=== PATIENT | female | born 1960 | race Hispanic/Latino ===

== ENCOUNTER 2019-06-11 07:49 | Observation (INO) | payer OTHER ==
[2019-06-11] VITALS (19 sets, daily range): BP systolic 97–176; BP diastolic 64–91
[~2019-06-11] VITALS: Ht 154.9 cm; Wt 54.5 kg
[~2019-06-11 07:49] MED LIST: SODIUM CHLORIDE 0.9% 1000ML 1,000 ML IV ONE
[2019-06-11] MEDS ORDERED: PANT40TA25 PO (10:00)
[2019-06-11] MEDS ORDERED: GLYCOPYRROLATE 0.2 MG/ML 5 ML VIAL ONE (10:35)
[2019-06-11] MEDS ORDERED: ROCURONIUM 10MG/1ML SYR 10 MG/ML ML ONE (10:57)
[2019-06-11] MEDS ORDERED: FENTANYL CITRATE PF 50 MCG/1 ML 2ML VIAL ONE (11:00)
[2019-06-11] MEDS ORDERED: MIDAZOLAM HCL 1 MG/ML 2ML VIAL ONE (11:00)
[2019-06-11] MEDS: ZOSYN 3.375GM+NS 50ML 50 ML IV SCH ×2 (13:00→19:35)
--- NOTE | 2019-06-11 13:20 | NUR ---
PT TO PACU, SEDATED. PT HAS NGT TO RT VINICIO GAMBLE, BESSIE JACK. MICHI MEZA RUNNING AT THIS TIME. PT STABLE, AWAKE AND ALERT. Addendum: 06/11/19 at 1339 by CARLOS A LUO RN RN Amended: Links added.
[2019-06-11] MEDS ORDERED: ONDANSETRON HCL 4 MG/2 ML VIAL ONE (13:27)
[2019-06-11] MEDS ORDERED: DEXAMETHASONE SOD PHOSPHATE 4 MG/ML 5ML VIAL ONE (13:29)
--- NOTE | 2019-06-11 16:30 | NUR ---
CALLED TO DR LENA MD REGARDING CONFIRMATION ON ADMITTING , PER AWARE OF PATIENT AND WILL BE THE ADMITTING MD ,PER MD MOHR,KNOTTING MACHINE OPERATOR WILL SEE PATIENT . LET HIM KNOW WHEN PATIENT ARRIVED TO FLOOR HAD COMPLAINT OF SOME PAIN WITH URINATION ,AND NO CURRENT UA .. PER MD HAVE POST OP NOTES READY AND HOME MEDS LISTED FOR READY FOR REVIEW .
--- NOTE | 2019-06-11 16:30 | NUR ---
INFORMED DR CASTELAN REGARDING NGT OUTPUT AT 600C AND ONGOING IF CONT TO REMOVED TUBE PER POST PROCEDURE ORDER TO REMOVE IN 3 .5 HRS.. PER MD IF PATIENT AWAKE OK TO REMOVE NGT . NGT OUT ,PATIENT TOLERATED WELL
--- NOTE | 2019-06-11 17:22 | NUR ---
ON ARRIVAL TO FLOOR PATIENT HAD ZOSYN COMPLETED
[2019-06-11] MEDS ORDERED: ACETAMINOPHEN 120 MG SUPPOSITORY RC PRN (17:45)
[2019-06-11] MEDS ORDERED: HYDRALAZINE HCL 20 MG/ML VIAL IV PRN (17:45)
[2019-06-11] MEDS ORDERED: ACETAMINOPHEN 650 MG SUPPOSITORY RC PRN (18:30)
[2019-06-11 18:45] LABS: HEMATOCRIT 35.7 % (36-48); MEAN CORPUSCULAR HEMOGLOBIN 28.7 pg (27.0-33.0); MEAN CORPUSCULAR HGB CONC 32.2 g/dL (32.0-36.0); PLATELET COUNT (AUTO) 335 K/uL (130-400); RED BLOOD CELL COUNT(AUTO) 4.01 MIL/uL (4.00-5.50); RED CELL DISTRIBUTION WIDTH 14.7 % (11.0-15.5)
[2019-06-11 18:58] LABS: CREATININE 0.6 mg/dL (0.5-1.5); POTASSIUM 3.4 mmol/L (3.5-5.1)
[2019-06-11] MEDS: ACETAMINOPHEN 325 MG TAB PO PRN (19:36)
[2019-06-11] MEDS: SODIUM CHLORIDE 0.9% 1000ML 1,000 ML IV SCH (19:41)
[2019-06-11] MEDS ORDERED: POTASSIUM CHLORIDE 20MEQ/100ML 100 ML IV PRN (19:45)
[2019-06-11] MEDS ORDERED: LIDOCAINE HCL-MPF 1% 2ML VIAL IV PRN (19:45)
[2019-06-11] MEDS ORDERED: POTASSIUM CHLORIDE 20 MEQ ERTAB PO PRN (19:45)
[2019-06-11 19:48] LABS: APPEARANCE,URINE Clear (CLEAR); BILIRUBIN,URINE Negative (NEGATIVE); COLOR,URINE Yellow (YELLOW); GLUCOSE, URINE (UA) Negative (NEGATIVE); KETONES,URINE 40 mg/dL (NEGATIVE); LEUKOCYTE ESTERASE ,URINE Trace (NEGATIVE); NITRATE,URINE Negative (NEGATIVE); OCCULT BLOOD,URINE Negative (NEGATIVE); PH,URINE 7.5 (5.0-8.0); PROTEIN,URINE Negative (NEGATIVE); UROBILINOGEN,URINE 0.2 mg/dL (0.2-1.0)
[2019-06-11 20:07] LABS: BACTERIA,URINE Rare /HPF (None Seen); RBC,URINE None Seen /HPF (0-1); SQUAMOUS EPITHELIAL CELL,UR 0-2 /HPF (0-2); WBC,URINE 0-1 /HPF (0-1)
[2019-06-11] MEDS: ONDANSETRON HCL 4 MG/2 ML VIAL IVP PRN (23:53)
--- NOTE | 2019-06-11 23:55 | NUR ---
ROUNDS PATIENT AWAKE AND ALERT. NOTED WITH NAUSEA AND EMESIS NOTED TO EMESIS BAG. PATIENT MEDICATED PER MARS FOR NAUSEA AND ASSISTED TO SHOWER. VITALS STABLE. AFEBRILE. PATIENT TOLERATING SHOWER WELL. WILL CONTINUE TO BE OBSERVED. CALL LIGHT WITHIN REACH. Addendum: 06/12/19 at 0536 by MARIE DANIELS RN RN Amended: Links added.
[2019-06-12] MEDS: ACETAMINOPHEN 325 MG TAB PO PRN (02:36)
[2019-06-12] MEDS: SODIUM CHLORIDE 0.9% 1000ML 1,000 ML IV SCH ×4 (02:57→20:19)
[2019-06-12] MEDS: ZOSYN 3.375GM+NS 50ML 50 ML IV SCH ×3 (03:36→20:19)
[2019-06-12 04:00] VITALS: BP 152/58
[2019-06-12] MEDS ORDERED: KETOROLAC TROMETHAMINE 15MG/ML ONE (05:12)
[2019-06-12 05:20] LABS: BASOPHILS % (AUTO) 0.3 % (0.0-5.0); HEMATOCRIT 35.1 % (36-48); LYMPHOCYTES % (AUTO) 15.2 % (21.0-51.0); MEAN CORPUSCULAR HEMOGLOBIN 28.7 pg (27.0-33.0); MEAN CORPUSCULAR HGB CONC 32.5 g/dL (32.0-36.0); MEAN CORPUSCULAR VOLUME 88.4 fL (79-99); MONOCYTES % (AUTO) 4.6 % (3.0-13.0); NEUTROPHILS % (AUTO) 79.6 % (40.0-77.0); PLATELET COUNT (AUTO) 366 K/uL (130-400); RED BLOOD CELL COUNT(AUTO) 3.97 MIL/uL (4.00-5.50); RED CELL DISTRIBUTION WIDTH 14.6 % (11.0-15.5); WHITE BLOOD COUNT (AUTO) 12.4 K/uL (4.8-10.8)
[2019-06-12 05:34] LABS: ALBUMIN 2.4 g/dL (3.5-5.0); BILIRUBIN,TOTAL 0.5 mg/dL (0.2-1.0); CREATININE 0.7 mg/dL (0.5-1.5); POTASSIUM 3.3 mmol/L (3.5-5.1); TOTAL PROTEIN, SERUM 6.4 g/dL (6.0-8.3)
--- NOTE | 2019-06-12 07:31 | NUR ---
MD ROUNDS VISITED WITH PATIENT. POC DISCUSSED. PER MD IF PATIENT TOLERATES PO DIET WELL, PATIENT MAY BE DISCHARGED LATER THIS AFTERNOON. IF PATIENT DOES NOT TOLERATE DIET, PATIENT MAY STAY ONE MORE NIGHT. PATIENT AWARE OF PLAN. NO QUESTIONS AT THIS TIME. PATIENT AWAKE AND ALERT EATING BREAKFAST AT THIS TIME. HOB ELEVATED. CALL LIGHT WITHIN REACH. WILL CONTINUE TO BE OBSERVED. REPORT GIVEN TO MIRZA JOY. Addendum: 06/12/19 at 0737 by MARIE DANIELS RN RN Amended: Links added.
[2019-06-12 07:52] VITALS: BP 136/57
[2019-06-12] MEDS: PANTOPRAZOLE SODIUM 40 MG TABLET.DR PO SCH (08:09)
[2019-06-12 11:48] VITALS: BP 126/71
[2019-06-12] MEDS: KETOROLAC TROMETHAMINE 15MG/ML IV PRN ×2 (16:30→20:49)
[2019-06-12] MEDS: ONDANSETRON HCL 4 MG/2 ML VIAL IVP PRN (16:33)
[2019-06-12 16:46] VITALS: BP 126/75
[2019-06-12 20:00] VITALS: BP 126/64
[2019-06-12 23:39] VITALS: BP 133/62
[2019-06-13 03:56] VITALS: BP 135/72
[2019-06-13] MEDS: ZOSYN 3.375GM+NS 50ML 50 ML IV SCH (03:57)
[2019-06-13] MEDS: SODIUM CHLORIDE 0.9% 1000ML 1,000 ML IV SCH (03:58)
[2019-06-13] MEDS: KETOROLAC TROMETHAMINE 15MG/ML IV PRN (03:59)
[2019-06-13 05:01] LABS: BASOPHILS % (AUTO) 0.2 % (0.0-5.0); EOSINOPHILS % (AUTO) 0.9 % (0.0-8.0); HEMATOCRIT 31.6 % (36-48); LYMPHOCYTES % (AUTO) 11.9 % (21.0-51.0); MEAN CORPUSCULAR HEMOGLOBIN 28.9 pg (27.0-33.0); MEAN CORPUSCULAR HGB CONC 32.6 g/dL (32.0-36.0); MEAN CORPUSCULAR VOLUME 88.8 fL (79-99); MONOCYTES % (AUTO) 5.4 % (3.0-13.0); NEUTROPHILS % (AUTO) 81.2 % (40.0-77.0); PLATELET COUNT (AUTO) 286 K/uL (130-400); RED BLOOD CELL COUNT(AUTO) 3.56 MIL/uL (4.00-5.50); RED CELL DISTRIBUTION WIDTH 14.6 % (11.0-15.5); WHITE BLOOD COUNT (AUTO) 10.6 K/uL (4.8-10.8)
[2019-06-13 05:25] LABS: ALBUMIN 1.9 g/dL (3.5-5.0); ASPARTATE AMINOTRANSFERASE 17 U/L (10-37); BILIRUBIN,TOTAL 0.5 mg/dL (0.2-1.0); CARBON DIOXIDE 26 mmol/L (21-32); CHLORIDE 101 mmol/L (101-111); CREATININE 0.5 mg/dL (0.5-1.5); GLOMERULAR FILTR. RATE CALC 136 mL/min (>60); GLUCOSE,RANDOM 101 mg/dL (70-105); POTASSIUM 3.3 mmol/L (3.5-5.1); SODIUM SERUM 136 mmol/L (136-145); TOTAL PROTEIN, SERUM 5.7 g/dL (6.0-8.3); UREA NITROGEN, BLOOD 5 mg/dL (7-18)
[2019-06-13 05:31] LABS: ALANINE AMINOTRANSFERASE < 6 U/L (12-78)
[2019-06-13 07:30] VITALS: BP 138/67
[2019-06-13] MEDS: POTASSIUM CHLORIDE 10% ELIXIR 20 MEQ/15 ML UDCUP PO PRN ×2 (07:37→11:02)
[2019-06-13] MEDS: PANTOPRAZOLE SODIUM 40 MG TABLET.DR PO SCH (08:00)
[2019-06-13 11:00] VITALS: BP 124/66
[2019-06-13] MEDS: ACETAMINOPHEN 325 MG TAB PO PRN (11:03)
== END 2019-06-13 16:15 | disposition home or self-care (01) ==
LOC: ENDO 07:49 → DAH 07:49 → DAHIP 07:50 → ENDO 07:50 → 4CH 14:04
PROVIDERS: ADMIT Internal Medicine; ATTEND Internal Medicine
DX: K86.2 Cyst of pancreas (principal); K31.89 Other diseases of stomach and duodenum; R35.0 Frequency of micturition; K21.9 Gastro-esophageal reflux disease without esophagitis; R63.4 Abnormal weight loss; R07.0 Pain in throat; R11.2 Nausea with vomiting, unspecified; E87.6 Hypokalemia; Z90.49 Acquired absence of other specified parts of digestive tract; Z12.11 Encounter for screening for malignant neoplasm of colon
CPT/HCPCS: 36415 ×3; 43240; 71045; 80048; 80053 ×2; 81001; 82948; 85025 ×2; 85027; 87088; 96361; 96365; 96366 ×3; 96368; 96375 ×2; 96376 ×2; A4215; A4221; A4222; A4223; A4606; A4663; C1877; G0378 ×45; J1100; J1885 ×4; J2250; J2405 ×3; J2543 ×6; J3010; J3480; J3490 ×2; J7030 ×5; 99218; C9113

== ENCOUNTER 2019-08-27 04:55 | Day surgery (SDC) | payer OTHER ==
[~2019-08-27] VITALS: Ht 154.9 cm; Wt 58.1 kg
[~2019-08-27 04:55] MED LIST changes: +METO5TAB2 PO; +PANT40TA55 PO; -SODIUM CHLORIDE 0.9% 1000ML 1,000 ML IV ONE
[2019-08-27 10:03] VITALS: BP 109/66
[2019-08-27] MEDS ORDERED: SODIUM CHLORIDE 0.9% 1000ML 1,000 ML IV ONE (10:24)
[2019-08-27] MEDS ORDERED: PROPOFOL 10 MG/ML 20ML VIAL IV ONE (10:33)
[2019-08-27] MEDS ORDERED: LIDOCAINE HCL 1% 20 ML VIAL ONE (10:34)
[2019-08-27 10:45] VITALS: BP 106/76
[2019-08-27 10:50] VITALS: BP 107/69
[2019-08-27 10:55] VITALS: BP 112/57
[2019-08-27 11:00] VITALS: BP 111/70
== END 2019-08-27 11:48 | disposition home or self-care (01) ==
LOC: ENDO 04:55 → DAH 04:55 → ENDO 11:48
PROVIDERS: ATTEND Internal Medicine
DX: K86.3 Pseudocyst of pancreas (principal); K31.89 Other diseases of stomach and duodenum; Z97.8 Presence of other specified devices
CPT/HCPCS: 43247; A4215; A4221; A4222; A4223; A4606; A4663; J2704; J7030